=== PATIENT | female | born 1955 | race Caucasian/White ===

== ENCOUNTER 2023-08-22 21:41 | Emergency (ER) | payer OTHER, SELFPAY ==
[2023-08-22 21:50] VITALS: BP 98/52
--- NOTE | 2023-08-23 02:26 | ED.MUSCINJ ---
HPI-Injury
<XIAO Whelan - Last Filed: 08/23/23 02:51>
General
Chief Complaint: Head Injury
Source: patient
Exam Limitations: none
Time Seen by Provider: 08/23/23 02:04
Travel History
Have you had any contact with someone who has COVID-19?: No
Do you have any symptoms of coronavirus? Fever > 100 degrees, chills, cough, shortness of breath, sore throat, loss of taste or smell, muscle aches, or headache?: No
History of Present Illness-Injury
Initial Injury comments:
This is a 67 YO F with a PMH of HTN, GERD, Acute hyponatremia, AA, and MINDY that presents here today with complaints of right-sided head pain, mid-sternal pain, and pain underneath the right breast x 5 hours. Pt reports she was sitting in a wheeling
computer chair, then fell back and hit her head on a piece of furniture and fell. She admits to mild CP and SOB upon inspiration. She admits to drinking before the event occurred. She did not take Motrin or Tylenol before getting here. Denies blood
thinners. Denies loss of consciousness, headache, N, V. Denies blurry vision.
Past History
<XIAO Whelan - Last Filed: 08/23/23 02:51>
Past History
ED Past Medical History: GERD, HTN and Psychiatric
Social History
Tobacco: Smoker
Alcohol: Chronic alcoholic
Drug: None
Personal:
Living: with family
Review of Systems
<XIAO Whelan - Last Filed: 08/23/23 02:51>
Review of Systems
Constitutional: Reports no symptoms
EENT: Reports no symptoms
Respiratory: Reports trouble breathing
Cardiac: Reports other (Chest discomfort/soreness)
ABD/GI: Reports no symptoms
: Reports no symptoms
Neurological: Reports no symptoms
Phy Exam
<ST TipPR - Last Filed: 08/23/23 02:51>
Physical Exam
Physical Exam:
S1 and S2, Breath sounds are equal B/L
Small bump with tenderness behind right side of the head
Tenderness under right breast, mid-sternal tenderness
(-)Cervical pain, (-)Back pain
General Physical Exam
General Presentation: well appearing
General age: appears stated age
General Habitus: normal
General Mental: alert
Cardiovascular Exam
Cardiovascular Exam: regular rate/rhythm
Pulmonary Exam
Pulmonary Exam: lungs clear and other (Chest discomfort)
Neurological Exam
Neurological Exam: alert, oriented x3 and speech normal
Musculoskeletal Exam
Musculoskeletal Exam: other (+Tenderness under right breast, +Tenderness in mid-sternal area)
Injury Course
<Tawnya Grant [facility] [[email or web address]] - Last Filed: 08/23/23 02:51>
Orders/Labs/Results
Orders:
Orders
08/22/23 21:[address] [CT Head W/o Iv Contrast] Urgent
Comment:
Reason For Exam: FALL
CR Ribs-right 3 Vw W/pa Chest* Urgent
Comment:
Reason For Exam: FALL
<Kraig Choi DO - Last Filed: 08/23/23 03:39>
Orders/Labs/Results
Orders:
Orders
08/22/23 21:[address] [CT Head W/o Iv Contrast] Urgent
Comment:
Reason For Exam: FALL
CR Ribs-right 3 Vw W/pa Chest* Urgent
Comment:
Reason For Exam: FALL
<Tawnya Grant [facility] [[email or web address]] - Last Filed: 08/23/23 02:51>
MDM/Problems Addressed
Differential Diagnosis Includes:
Rib fracture, concussion
MDM/Problems Addressed:
Head pain x 5 hours
<XIAO Whelan - Last Filed: 08/23/23 02:51>
*Critical Care Note
Total Time (30-74mins, 75-104mins- exclusive of procedures): Not Applicable
<XIAO Whelan - Last Filed: 08/23/23 02:51>
Update Note
Update Note:
Christy (Pt's daughter): [phone] to call when patient is ready
CT head
IMPRESSION:
No acute intracranial findings.
Senescent changes. Vascular calcifications.
<Kraig Choi DO - Last Filed: 08/23/23 03:39>
Update Note
Update Note:
CT head
IMPRESSION:
No acute intracranial findings.
Senescent changes. Vascular calcifications.
ED Attending Note
<XIAO Whelan - Last Filed: 08/23/23 02:51>
-
Portions of this chart may have been created with voice recognition software.� Occasional wrong word or��sound alike� substitutions may have occurred due to the inherent limitations of voice recognition software.
<Kraig Choi DO - Last Filed: 08/23/23 03:39>
ED Attending Note
Patient seen and examined by attending physician: Yes
I performed the substantive portion of visit, reviewed & personally made and approve the management plan that is documented in note by myself or ROBERT.: Yes
ED Attending Note:
Pleasant 67-year-old female who presents with closed head injury and rib pain. Patient states that she has had pain underneath the right breast since she fell. Patient admits to consuming alcohol and was sitting in a rolling chair. It slid out
from underneath her and she fell back and hit her head and chest. Denies loss of consciousness. Patient was seen in conjunction with the PA student. I have reviewed and agree with the history and treatment plan presented. On my independent
physical exam, patient is awake, alert, and oriented x3 resting comfortably on the bed. Lungs are clear to auscultation bilaterally without wheezes rales or rhonchi present. Abdomen is soft and minimally tender in the epigastrium nondistended.
Sternum is tender to palpation.
CT of the head is negative. No obvious rib fractures on chest x-ray. Patient to be discharged home
Discharge Plan
Departure
Patient Disposition: Home (Routine Discharge)
Date of Disposition: 08/23/23
Time of Disposition: 03:38
Patient with high blood pressure during this ER visit?: No
Condition: Good
Discharge Problem:
Head injury, Chest wall pain
Instructions: Minor Head Injury (DC), Contusion (DC), Muscle and Bone Pain (DC)
Prescriptions:
No Action
fluticasone propionate 1 SPRAY spray,suspension
1 spray intranasal DAILYPRN PRN (Reason: congestion)
omeprazole 20 MG tablet,delayed release (DR/EC)
20 mg PO DAILY
metoprolol succinate 25 MG tablet extended release 24 hr
25 mg PO DAILY Qty: 30 0RF
nicotine 14 MG patch 24 hour
14 mg transdermal DAILY 0RF
folic acid 1 MG tablet
1 mg PO DAILY 0RF
aripiprazole 2 MG tablet
2 mg PO DAILY Qty: 30 0RF
lisinopril 5 MG tablet
5 mg PO DAILY Qty: 30 0RF
thiamine HCl (vitamin B1) 100 MG tablet
100 mg PO DAILY Qty: 30 0RF
Referrals:
NONE,* [Family Provider] -
[facility] [Outside]
[facility] [Outside]
Activity Restrictions/Additional Instructions:
It was a pleasure meeting you and taking part in your care. We hope for your continued healing and wellness.
Please read discharge instructions in their entirety. However, they are for general education and may not describe your exact diagnosis at discharge. Information on your ER visit and medical conditions were discussed with you along with appropriate
follow up information...
If indicated, please take your medications as instructed and indicated on discharge paperwork.
Please schedule a follow up appointment as directed. Call to schedule an appointment
Please return to the emergency department with ANY change in, persisting, or worsening of symptoms. If any of your symptoms do not improve, or persist, or become more severe within 6-12 hours, please return to the emergency department for further
care.
Please return to the emergency department if you develop a headache, neck pain/stiffness, fever greater than 100.4F, chest pain, shortness of breath, persistent nausea, vomiting, slurred speech, difficulty walking, numbness/tingling, weakness, signs
of infection or any other symptoms that are worrisome to you.
If you have any questions or concerns please do not hesitate to call the Hospital at or E-mail me directly at [email or web address]
Interventions
Interventions:
*Risk Screen - Suicide Last Done: 08/22/23 21:50
*Neglect/Abuse Screening Last Done: 08/22/23 21:50
ED- Fall Risk Assessment Last Done: 08/23/23 02:09
ED-Musculoskeletal Assessment Last Done: 08/23/23 02:09
ED- Neurological Assessment Last Done: 08/23/23 02:09
ED-Skin Assessment Last Done: 08/23/23 02:09
Discharge Date and Time
Print Language: CROATIAN
[2023-08-23 06:56] VITALS: BP 157/87
== END 2023-08-23 06:57 | disposition home or self-care (01) ==
LOC: EMR 21:41
PROVIDERS: EMERGENCY PHYSICIAN Student in an Organized Health Care Education/Training Program
DX: S09.90XA Unspecified injury of head, initial encounter (principal); R07.89 Other chest pain; R51.9 Headache, unspecified; R06.02 Shortness of breath; W07.XXXA Fall from chair, initial encounter; F10.20 Alcohol dependence, uncomplicated; I10 Essential (primary) hypertension; K21.9 Gastro-esophageal reflux disease without esophagitis; F17.200 Nicotine dependence, unspecified, uncomplicated
CPT/HCPCS: 99284; 70450; 71101

== ENCOUNTER 2023-10-06 01:49 | Inpatient (IN) | payer OTHER, SELFPAY ==
[2023-10-05 20:09] VITALS: BP 110/77
[2023-10-05 20:30] LABS: % Basophils 0.3 % (0-2); % Eosinophils 0.8 % (0-6); % Immature Granulocytes 0.5 % (0-0.5); % Lymphocytes 30.1 % (20.5-51.1); % Neutrophils 61.3 % (42.2-75.2); Absolute Eosinophils 0.1 10^3/uL (0-0.7); Absolute Immature Granulocytes 0.1 10^3/uL (0-0.05); Absolute Lymphocytes 3.4 10^3/uL (1.2-3.4); Absolute Monocytes 0.8 10^3/uL (0.1-0.6); Hematocrit 40.1 % (37.0-47.0); Hemoglobin 14.6 g/dL (12.0-16.0); Mean Corp Hgb Conc. 36.4 g/dL (33.0-37.0); Mean Corpuscular Hgb 33.1 pg (27.0-31.0); Mean Corpuscular Volume 90.9 fL (81.0-99.0); Mean Platelet Volume 9.6 fL (7.4-10.4); Nucleated Red Blood Cells % 0 %; Platelet Count 412 10^3/uL (130-400); Red Blood Cell Count 4.41 10^6/uL (4.20-5.40); Red Cell Dist. Width 13.2 % (11.5-14.5); White Blood Cell Count 11.4 10^3/uL (4.8-10.8)
[2023-10-05 20:54] LABS: AST (SGOT) 35 U/L (14-36); Albumin 4.6 g/dl (3.5-5.0); Alkaline Phosphatase 158 U/L (38-126); Blood Urea Nitrogen 10 mg/dl (7-17); Calcium 9.4 mg/dl (8.4-10.2); Carbon Dioxide 28 mmol/L (22-30); Chloride 85 mmol/L (98-107); Glucose 125 mg/dl (70-99); Lipase 63 U/L (23-300); Potassium 3.7 mmol/L (3.5-5.1); Sodium 122 mmol/L (135-145); Total Bilirubin 0.9 mg/dl (0.2-1.3); Total Protein 7.3 g/dl (6.3-8.2); eGFR > 60.00
[2023-10-05 21:06] LABS: ALT (SGPT) < 30 U/L (0-35)
--- NOTE | 2023-10-05 21:20 | ED.GENMED ---
History of Present Illness
General
Chief Complaint: Abdominal Symptoms
Source: patient
Exam Limitations: none
Time Seen by Provider: 10/05/23 20:56
History of Present Illness
History of Present Illness:
This is a 67 year old female that comes in with c/o abd pain vomiting and diarrhea. States that she started 3 days ago with abd pain, vomiting and diarrhea. State that the vomiting and diarrhea started first. States that she is weak and dizzy and
has not been able to eat. States that the pain is in the middle of her abd. States that she has balance issues. States that she has had chills and sweats at night, chest tightness and dizziness. Denies any SOB, headache, urinary burning.
Past History
Past History
ED Past Medical History: GERD, HTN, Psychiatric (Anxiety, Depression) and Other (DVT)
ED Past Surgical History: Appendectomy and Gynecological (tubal ligation)
Social History
Tobacco: Smoker
Alcohol: Chronic alcoholic (wine 4-5 glasses)
Drug: None
Personal:
Living: alone
Review of Systems
Review of Systems
All Other Systems: ROS reviewed and negative except as documented in HPI and ROS
Constitutional: Reports night sweats and chills; Denies fever
EENT: Reports no symptoms
Respiratory: Denies cough or trouble breathing
Cardiac: Reports chest pain (tightness)
ABD/GI: Reports abdominal pain, nausea, vomiting and diarrhea
: Reports no symptoms; Denies dysuria, frequency or urgency
Musculoskeletal: Reports no symptoms
Skin: Reports no symptoms
Neurological: Reports dizzy; Denies headache
Psychiatric: Reports no symptoms
Phy Exam
General Physical Exam
General Presentation: no apparent distress
General age: appears stated age
General Skin: warm and dry
General Habitus: normal
General Mental: alert
General Hydration: dry mucous membranes
ENT Exam
ENT Exam: TM's normal, pharynx normal and neck supple
Eye Exam
Eye Exam: EOMI
Cardiovascular Exam
Cardiovascular Exam: regular rate/rhythm, no edema, no murmur and normal peripheral pulses
Pulmonary Exam
Pulmonary Exam: lungs clear, no respiratory distress, no rales, chest non tender, no crackles, no rhonchi, no wheezing and no cough
Gastrointestinal Exam
Gastrointestinal Exam: normal bowel sounds, soft, no organomegaly, no pulsatile mass, non distended and tender (Generalized tenderness with palpation)
Musculoskeletal Exam
Musculoskeletal Exam: full ROM and no edema
Skin Exam
Skin Exam: normal color, warm/dry, no rash and no petechia
Psychiatric Exam
Psychiatric Exam: normal mood/affect
Course
Orders/Labs/Results
Orders:
Orders
10/05/23 20:22
Complete Blood Count/With Diff Urgent
Comprehensive Metabolic Panel Urgent
Lipase Urgent
10/05/23 21:19
CT Abd/pel W Iv And Oral Contr Urgent
Comment:
Reason For Exam: Generalized abd pain
0.9% Sodium Chloride 1000 ml [Nss] 1,000 ml IV BOLUS
Iohexol [Omnipaque] See Protocol PO NOW STA
10/05/23 21:20
Ondansetron Injectable [Zofran] 4 mg IV NOW STA
10/05/23 21:22
Electrocardiogram (*1) Urgent
Reason for Study: Abdominal Pain
EKG- Treatment ONCE
10/05/23 21:47
Troponin I Urgent
10/05/23 23:00
UA Reflex to Culture [Urinalysis Reflex To Culture] Urgent
Date Specimen was Collected: 10/05/23
Time Specimen was Collected: 20:13
Abnormal Lab Results
10/05/23
20:22
WBC 11.4 H 10^3/uL
(4.8-10.8)
MCH 33.1 H pg
(27.0-31.0)
Plt Count 412 H 10^3/uL
(130-400)
Abs Immat Gran (auto) 0.1 H 10^3/uL
(0-0.05)
Absolute Neuts (auto) 7.0 H 10^3/uL
(1.4-6.5)
Absolute Monos (auto) 0.8 H 10^3/uL
(0.1-0.6)
Sodium 122 L mmol/L
(135-145)
Chloride 85 L mmol/L
(98-107)
Glucose 125 H mg/dl
(70-99)
Alkaline Phosphatase 158 H U/L
(38-126)
10/05/23 20:22
10/05/23 20:22
WBC very slightly elevated. Chloride low. Glucose nonfasting. Hyponatremia, Alk phos elevation. Lipae normal at 63
Vital Signs
Initial and Last Documented VS:
Initial Vital Signs
Temp Pulse Resp BP Pulse Ox
98.2 F 111 20 110/77 97
10/05/23 20:09 10/05/23 20:09 10/05/23 20:09 10/05/23 20:09 10/05/23 20:09
Last Documented Vital Signs
Temp Pulse Resp BP Pulse Ox
98.2 F 111 20 110/77 97
10/05/23 20:09 10/05/23 20:09 10/05/23 20:09 10/05/23 20:09 10/05/23 20:09
MDM/Problems Addressed
Differential Diagnosis Includes:
Alcohol abuse. Gastritis, Hyponatremia
MDM/Problems Addressed:
This is a 67 year old female that comes in with c/o vomiting, diarrhea and abd pain. states that this started 3 days ago. State that she is dizzy and weak.
Will get labs. CT abd, give IV fluids and explained to patient that she will be admitted as her Sodium is very low.
Back into see patient. Explained that the CT shows that she has enteritis. This will get better on its own. However, with the Hyponatremia, patient will be admitted. Hospitalist notified
Chronic conditions affecting care:
Alcohol use
Acute Exacerbation and/or Progression of Chronic Illness:
Alcohol use
*Radiology
Radiology exam reviewed: radiology read reviewed (CT- circumferential colonic wall thickening and hyperenhancement of the loops of small bowel with scattered air-fluid level, compatible with Enterocolitis. No bowel obstruction. Normal gallbladder
Incidentals: No obstructive uropathy. hepatic hypodensities, too small to characterize.) and all reviewed NAD by ED Provider (CT cont- No abdominal aortic aneurysm. Age-indeterminate compression deformity of L2 vertebral body, approximately 20%
height loss anteriorly, new since prior dated 07/16/2018. No acute abnormality within the visualized lungs. No acute abnormality within the visualized soft tissues. )
*Pulse Oximetry
Patient hypoxic: no
*Bottom Sander Interpretation
Rate: Bottom Sander- N/A
*Critical Care Note
Total Time (30-74mins, 75-104mins- exclusive of procedures): Not Applicable
ED Attending Note
-
Portions of this chart may have been created with voice recognition software.� Occasional wrong word or��sound alike� substitutions may have occurred due to the inherent limitations of voice recognition software.
Discharge Plan
Departure
Patient Disposition: Admit
Date of Disposition: 10/06/23
Time of Disposition: 00:16
Admit to: Med/Surg
Presentation/result/management discussed w/ accepting MD/DO: Hospitalist
Patient with high blood pressure during this ER visit?: No
Condition: Good
Covid-19: Not Applicable
Discharge Problem:
Abdominal pain, Acute hyponatremia
Prescriptions:
No Action
fluticasone propionate 1 SPRAY spray,suspension
1 spray intranasal DAILYPRN PRN (Reason: congestion)
omeprazole 20 MG tablet,delayed release (DR/EC)
20 mg PO DAILY
metoprolol succinate 25 MG tablet extended release 24 hr
25 mg PO DAILY Qty: 30 0RF
nicotine 14 MG patch 24 hour
14 mg transdermal DAILY 0RF
folic acid 1 MG tablet
1 mg PO DAILY 0RF
aripiprazole 2 MG tablet
2 mg PO DAILY Qty: 30 0RF
lisinopril 5 MG tablet
5 mg PO DAILY Qty: 30 0RF
thiamine HCl (vitamin B1) 100 MG tablet
100 mg PO DAILY Qty: 30 0RF
Referrals:
NONE,* [Family Provider] -
Interventions
Interventions:
*General Assessment Last Done: 10/05/23 20:09
ED- Fall Risk Assessment Last Done: 10/05/23 21:11
JR-[id number]-[id number] Assessment Last Done: 10/05/23 21:20
Discharge Date and Time
Print Language: ARABIC
[2023-10-05] MEDS: NSS 1000 IV (21:27)
[2023-10-05] MEDS: OMNIPAQUE 50 ML PO (21:27)
[2023-10-05] MEDS: ZOFRAN 4 MG IV (21:27)
[2023-10-05 21:33] VITALS: BP 132/72
[2023-10-05 22:00] VITALS: BP 156/94
[2023-10-05 22:17] LABS: Troponin I 0.024 ng/ml
[2023-10-06 01:07] VITALS: BP 108/55
--- NOTE | 2023-10-06 01:07 | HPS.HSE ---
Family Physician
-
Family Physician: * NONE
Chief Complaint
-
N/V/D, Abd Pain
History of Present Illness
Patient is a 67y F with PMH significant for hypertension, anxiety / depression and alcohol use disorder who presents to ED complaining of abdominal pain with N/V/D x 3 days. Patient states that she has had N/V and loose stools x 3 days. No
known sick contacts. No new / suspicious food intake. Patient does note subjective fevers / chills / sweats in addition to her GI complaints.
Patient states that her diarrhea seems to be gradually improving; however, she continues to have nausea and 'dry heaves' and is having difficulty tolerating PO intake.
Patient admits to regular alcohol use amounting to approximately 4-5 glasses of wine daily. Her last alcohol was about 2 days ago due to her current symptoms.
She recently relocated to this area from [place] and does not have a local physician.
She knows names of her medication - but not doses.
Medical History
Past Medical History
Past Medical History: Reports Other
Additional Past Medical History:
Hypertension
Anxiety / Depression
Dyslipidemia
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
Past Surgical History: Reports Other
Additional Past Surgical History:
Appendectomy
Tubal Ligation
Social History
Tobacco: Smoker (Current every day smoker. > 40 pack years total use.)
Alcohol: Daily (4-5 glasses of wine daily. Last drink 2 days ago.)
Family History
Family History: Not pertinent
Allergies / Home Medications
Allergies reflects when Allergies were last updated in [employer].
Home Medications with original date entered in [employer]
Allergy/Medication List:
Patient does not know doses of medications. Her named list is as follows:
Trazodone nightly
Sertraline daily
Atorvastatin nightly
Metoprolol once daily
Omeprazole daily
Formal med rec will need to be completed in the AM.
Review of Systems
-
History Source: Patient
A 12 point ROS was completed and negative except as noted: Yes
Constitutional: Reports Fever, Fatigue, Night Sweats and Chills
EENT: Denies Sore Throat
Respiratory: Denies Cough or Trouble Breathing
Cardiac: Denies Chest Pain or Palpitations
Abdomen/GI: Reports Abdominal Pain, Nausea, Vomiting, Diarrhea and Anorexia; Denies Bloody Stools or Black Stools
: Denies Dysuria, Frequency or Flank Pain
Musculoskeletal: Denies Joint Pain or Edema
Neurological: Denies Dizzy or Headache
Psych: Denies Depression or Anxiety
Physical Exam
Vital Signs
Vital Signs
Temp Pulse Resp BP Pulse Ox
98.2 F 111 20 110/77 97
10/05/23 20:09 10/05/23 20:09 10/05/23 20:09 10/05/23 20:09 10/05/23 20:09
Physical Exam
General: Other (67y F in no acute distress.)
HEENT: PERRLA and Other (Dry MM.)
Respiratory: Clear; No Wheezes, Rales or Rhonchi
Cardiac: S1/S2 and Regular Rhythm; No Murmur
GI: Soft, Non Distended, Normal Bowel Sounds and Other (Mild tenderness in epigastric and periumbilical areas.)
Musculoskeletal: No Clubbing, No Cyanosis and No Edema
Neuro: AO x 3
Laboratory Results
-
10/05/23 20:22
10/05/23 20:22
Laboratory Results
Total Bilirubin 0.9 mg/dl (0.2-1.3) 10/05/23 20:22
AST 35 U/L (14-36) 10/05/23 20:22
ALT < 30 U/L (0-35) 10/05/23 20:22
Alkaline Phosphatase 158 U/L (38-126) H 10/05/23 20:22
Troponin I 0.024 ng/ml 10/05/23 21:47
Lipase 63 U/L (23-300) 10/05/23 20:22
Impression/Plan
-
A/P: Patient is a 67y F with PMH significant for hypertension and alcohol use disorder who presents to ED complaining of 3 days of N/V/D and abdominal pain.
Enterocolitis
- Admit for further evaluation and treatment.
- Likely viral process - check stools cultures to rule out Salmonella, etc given recent prevalence.
- Supportive care including IVFs, antiemetics, etc.
Hyponatremia
- Acuity is unclear as patient had similar findings previously.
- Suspect component of acute / hypovolemic hyponatremia due to GI losses.
- Follow for improvement with IVF replacement overnight.
- Check urine studies.
- Likely degree of chronic hyponatremia due to alcohol use disorder / poor solute intake.
Alcohol Use Disorder
- Typically has 4-5+ drinks daily.
- Last drink was 2 days ago - in window for withdrawal symptoms.
- Supportive care including thiamine / folate replacement, etc.
- Monitor for symptoms of withdrawal and treat with BZDs as needed.
- Encourage sobriety efforts.
Benign Hypertension
- Resume usual medications / metoprolol once dose / frequency can be confirmed with pharmacy in the AM.
Anxiety / Depression
- Continue trazodone nightly.
- Resume usual sertraline dose once this can be confirmed (though consider holding if hyponatremia worsens / dose not improve).
DVT Prophylaxis: SCDs
Code Status: Full
[2023-10-06] MEDS: DESYREL 100 MG PO ×2 (01:29→21:47)
[2023-10-06 02:03] LABS: Alcohol None Detected
[2023-10-06 02:47] VITALS: BP 123/74; BMI 15.3
[2023-10-06] MEDS: LR 1000 IV ×3 (03:04→21:46)
[2023-10-06 06:31] LABS: Hematocrit 32.6 % (37.0-47.0); Hemoglobin 11.9 g/dL (12.0-16.0); Mean Corp Hgb Conc. 36.5 g/dL (33.0-37.0); Mean Corpuscular Hgb 34.1 pg (27.0-31.0); Mean Corpuscular Volume 93.4 fL (81.0-99.0); Mean Platelet Volume 9.8 fL (7.4-10.4); Platelet Count 250 10^3/uL (130-400); Red Blood Cell Count 3.49 10^6/uL (4.20-5.40); Red Cell Dist. Width 13.2 % (11.5-14.5); White Blood Cell Count 9.9 10^3/uL (4.8-10.8)
[2023-10-06 06:48] LABS: Urine Albumin Negative (Neg - Trace); Urine Bilirubin Negative (Negative); Urine Character Clear (Clear); Urine Color Yellow; Urine Glucose Negative (Negative); Urine Ketone Negative (Negative); Urine Leukocyte Negative (Negative); Urine Nitrite Negative (Negative); Urine Occult Blood Negative (Negative); Urine Specific Gravity 1.005 (<1.030); Urine Urobilinogen Negative (Neg - 1+)
[2023-10-06 06:49] LABS: Osmolality Urine 109 mOsm/kg (300-900)
[2023-10-06 06:52] LABS: Blood Urea Nitrogen 9 mg/dl (7-17); Calcium 8.6 mg/dl (8.4-10.2); Carbon Dioxide 31 mmol/L (22-30); Chloride 92 mmol/L (98-107); Estimated Creatinine Clearance 49 ml/min; Glucose 87 mg/dl (70-99); Magnesium 1.4 mg/dl (1.6-2.3); Phosphorus 3.5 mg/dl (2.5-4.5); Potassium 3.5 mmol/L (3.5-5.1); Sodium 127 mmol/L (135-145); eGFR > 60.00
[2023-10-06 07:01] LABS: Urine Sodium 14 mmol/L (30-90)
[2023-10-06 07:41] LABS: Hepatitis C Antibody Negative (Negative)
[2023-10-06 07:50] VITALS: BMI 15.2
[2023-10-06 07:55] VITALS: BP 117/65
[2023-10-06] MEDS: FOLVITE 1 MG PO (08:42)
[2023-10-06] MEDS: THIAMINE INJECTION 200 MG IV ×2 (08:43→21:47)
[2023-10-06] MEDS: PROTONIX IV 40 MG IV (08:43)
[2023-10-06] MEDS: NSS (PRESERVATIVE FREE) 10 ML IV (08:43)
--- NOTE | 2023-10-06 10:42 | CM ---
Reviewed the chart notes and received CM consult for substance abuse counseling. CM spoke with the patient at the bedside. Patient open to [facility] field support representative reaching out to her. Call placed to [facility], field support representative Geovanny will see patient later
today.
The patient resides alone in a one story home with two steps to enter. The patient reports no DME/VN/SNF in the past. The patient confirmed her pharmacy of choice is the [facility]. CM continues to be available to
patient/family and is monitoring medical plan for needs at discharge.
Plan: Discharge to home when medically stable.
[2023-10-06 11:09] LABS: Amphetamines Negative (Negative); Barbiturates Negative (Negative); Benzodiazepines Negative (Negative); Buprenorphine Negative (Negative); Cocaine Negative (Negative); Marijuana Positive (Negative); Methadone Negative (Negative); Methamphetamines Negative (Negative); Opiates Negative (Negative); Phencyclidine Negative (Negative); Tricyclic Antidepressants Negative (Negative)
[2023-10-06 11:13] VITALS: BP 121/66
--- NOTE | 2023-10-06 13:26 | W.PN.HOSP.TC ---
Addendum entered and electronically signed by Luis Antonio Billings MD 10/06/23 17:56:
I saw and evaluated the patient. I reviewed the resident�s note and agree with findings and plan as documented in the resident�s note.
Repeat BMP to follow on sodium this evening. Continue IV fluid. llow sodium in the urine suggest prerenal process which correlates with her GI symptoms.
Original Note:
Today's Communication/Plan
-
We will continue supportive care including lactated Ringer's, antiemetics. Abdominal ultrasound ordered to assess liver, gallbladder, pancreas. Check albumin and prealbumin for nutritional status.
Assessment / Plan
Assessment / Plan
- Abdominal Pain/Nausea: Monitoring
Possibly viral process - check stools cultures to rule out Salmonella, etc given recent prevalence.
Supportive care including IVFs, antiemetics, etc.
Abdominal ultrasound ordered to assess liver, pancreas, and gallbladder
- Hypovolemic Hyponatremia:
Suspect component of acute / hypovolemic hyponatremia due to GI losses.
Following for improvement with IVF replacement with lactated ringer's
UA ordered - urine osmolality was low at 109 and urine sodium was low at 14
Possibly due to alcohol use disorder / poor solute intake.
- Alcohol Use Disorder:
Typically has 4-5+ drinks daily.
Last drink was 2 days ago which is within the window for withdrawal symptoms.
Supportive care including thiamine/folate replacement.
Monitoring for symptoms of withdrawal and will treat with benzodiazepines as needed.
Reduction of alcohol intake / sobriety.
Consider outpatient follow-up with primary care provider and gastroenterology
- Benign Hypertension:
Home medications restarted.
Metoprolol given.
-Anxiety/depression:
Continue trazodone nightly
Resume normal sertraline dose if hyponatremia is resolved
- Body mass index of 19.9 or less:
Dietary consult ordered
Serum albumin and prealbumin to assess nutritional status
Consider nutritional support, possibly including oral nutritional supplement.
DVT prophylaxis: Sequential compression devices
Anticipated Discharge: 24 - 48 hours
Subjective/Interval History
-
Date of Service: October 06, 2023
Met with patient at the bedside. She is in a calm and pleasant demeanor during discussion. She states that her nausea and abdominal pain have slightly improved.
Objective Data
-
Labs:
Laboratory Results
10/06/23
06:20
WBC 9.9
Hgb 11.9 L
Hct 32.6 L
Plt Count 250 D
Sodium 127 L
Potassium 3.5
Chloride 92 L
Carbon Dioxide 31 H
BUN 9
Creatinine 0.8
Glucose 87
Calcium 8.6
Vital Signs:
Vital Signs
Temp Pulse Resp BP Pulse Ox
98.0 F 80 18 121/66 98
10/06/23 11:13 10/06/23 11:13 10/06/23 11:13 10/06/23 11:13 10/06/23 13:11
Review of Systems
-
History Source: Patient
Constitutional: Reports No Symptoms
EENT: Reports No Symptoms Reported
Respiratory: Reports No Symptoms
Cardiac: Reports No Symptoms
Abdomen/GI: Reports Abdominal Pain, Nausea and Pain
Breast: Reports No Symptoms
Genitourinary: Reports No Symptoms
Musculoskeletal: Reports No Symptoms
Skin: Reports No Symptoms
Neuro: Reports No Symptoms
Endocrine: Reports No Symptoms
Hematologic / Lymphatic: Reports No Symptoms
Allergy / Immunology: Reports No Symptoms
Physical Exam
-
General: Well Developed and Well Nourished
HEENT: Normocephalic, Atraumatic and Moist Mucous Membranes
Respiratory: Clear to Auscultation
Cardiac: Regular Rhythm and S1/S2
Breast: Deferred by me
GI: Soft and Nondistended
Rectal: Deferred by Provider
Genito-urinary: Deferred by me
Musculoskeletal: No Clubbing, No Cyanosis and No Edema
Skin: Warm and Dry
Neuro: Nonfocal/Grossly Intact
Psych: Calm
[2023-10-06 15:07] VITALS: BP 109/57
[2023-10-06 15:13] VITALS: BMI 15.2
[2023-10-06] MEDS: MAGONATE 86 MG PO (16:46)
[2023-10-06 16:48] LABS: AST (SGOT) 42 U/L (14-36); Albumin 3.7 g/dl (3.5-5.0); Alkaline Phosphatase 134 U/L (38-126); Direct Bilirubin 0.3 mg/dl (0.0-0.4); Total Bilirubin 0.8 mg/dl (0.2-1.3); Total Protein 6.2 g/dl (6.3-8.2)
[2023-10-06 17:30] LABS: ALT (SGPT) < 30 U/L (0-35)
[2023-10-06 19:13] LABS: Blood Urea Nitrogen 7 mg/dl (7-17); Calcium 8.3 mg/dl (8.4-10.2); Carbon Dioxide 29 mmol/L (22-30); Chloride 93 mmol/L (98-107); Estimated Creatinine Clearance 65 ml/min; Glucose 130 mg/dl (70-99); Potassium 3.2 mmol/L (3.5-5.1); Sodium 127 mmol/L (135-145); eGFR > 60.00
[2023-10-06 23:50] VITALS: BP 90/52
[2023-10-07 01:36] VITALS: BP 90/52
[2023-10-07 04:06] VITALS: BP 128/73
[2023-10-07 07:00] VITALS: BP 131/70
[2023-10-07 07:40] LABS: Hematocrit 27.6 % (37.0-47.0); Hemoglobin 10.2 g/dL (12.0-16.0); Mean Corpuscular Hgb 34.8 pg (27.0-31.0); Mean Corpuscular Volume 94.2 fL (81.0-99.0); Mean Platelet Volume 10.2 fL (7.4-10.4); Platelet Count 212 10^3/uL (130-400); Red Blood Cell Count 2.93 10^6/uL (4.20-5.40); Red Cell Dist. Width 13.2 % (11.5-14.5); White Blood Cell Count 5.8 10^3/uL (4.8-10.8)
[2023-10-07 08:02] LABS: ALT (SGPT) 18 U/L (0-35); AST (SGOT) 39 U/L (14-36); Albumin 2.4 g/dl (3.5-5.0); Alkaline Phosphatase 88 U/L (38-126); Blood Urea Nitrogen 6 mg/dl (7-17); Carbon Dioxide 27 mmol/L (22-30); Chloride 101 mmol/L (98-107); Estimated Creatinine Clearance 65 ml/min; Glucose 78 mg/dl (70-99); Potassium 3.1 mmol/L (3.5-5.1); Sodium 131 mmol/L (135-145); Total Bilirubin 0.6 mg/dl (0.2-1.3); Total Protein 4.6 g/dl (6.3-8.2); eGFR > 60.00
[2023-10-07 08:05] LABS: Prealbumin (Transthyretin) 14.2 mg/dl (17.6-36.0)
[2023-10-07] MEDS: PROTONIX IV 40 MG IV (09:05)
[2023-10-07] MEDS: FOLVITE 1 MG PO (09:05)
[2023-10-07] MEDS: THIAMINE INJECTION 200 MG IV (09:05)
[2023-10-07] MEDS: NSS (PRESERVATIVE FREE) 10 ML IV (09:06)
[2023-10-07] MEDS: FLUSH (NSS) 2 FLUSH IV ×2 (09:08→14:53)
[2023-10-07] MEDS: LR IV (09:43)
--- NOTE | 2023-10-07 09:51 | W.PN.HOSP.TC ---
Documented by User: Maria Esther Layton MD, Resident 10/07/23 11:21
Today's Communication/Plan
-
Will continue IVF resuscitation. Will continue to give potassium to correct for hypokalemia. Will replete magnesium if continues to have hypomagnesemia. Will continue to follow the recommendations of dietary and encouraged the patient to increase
her fluid intake if tolerated.
Assessment / Plan
Assessment / Plan
- Abdominal Pain/Nausea: Monitoring
Possibly viral process - check stools cultures to rule out Salmonella, etc given recent prevalence.
Supportive care including IVFs, antiemetics, etc.
Dietary consult concluded that the patient met criteria for chronic severe protein calorie malnutrition. They advised that the patient do the best to consume greater than 50% of each meal offered. They also recommended that the diet remain as a
regular diet to maximize oral intake.
Stool culture pending from 10/05 for Salmonella/Shigella, Campylobacter, and Shiga toxin.
Abdominal CT conducted on 10/04 showed air-fluid levels in nondilated small and large bowel loops, findings that may be seen in association with ileus or enteritis. There was no bowel obstruction. No signs of abscess formation no focal
inflammatory reaction of the bowel was identified. Hepatic fatty infiltration seen.
- Hypovolemic Hyponatremia: Improving with Repletion
Suspect component of acute / hypovolemic hyponatremia due to GI losses.
Following for improvement with IVF replacement with lactated ringer's
Current sodium is 131 -continue IVF repletion.
UA ordered - urine osmolality was low at 109 and urine sodium was low at 14 on 10/06. Suggests prerenal process which correlates with her GI symptoms.
Possibly due to alcohol use disorder / poor solute intake.
- Hypokalemia: Monitoring + tx
Potassium was 3.2 on 10/05 and is currently 3.1 on 10/06.
Patient is currently on lactated Ringer's. Continue IVF resuscitation. Added potassium chloride p.o.
- Hypomagnesemia: Monitoring + tx
Magnesium was 1.4 on 10/05. Remains at 1.4 on 10/06.
Continue to replete since current labs continue to show hypomagnesemia.
- Alcohol Use Disorder: Stable
Typically has 4-5+ drinks daily.
Last drink was 2 days ago which is within the window for withdrawal symptoms.
Supportive care including thiamine/folate replacement.
Monitoring for symptoms of withdrawal and will treat with benzodiazepines as needed.
Reduction of alcohol intake / sobriety.
Consider outpatient follow-up with primary care provider and gastroenterology
- Benign Hypertension: Stable
Home medications restarted.
Metoprolol given.
- Anxiety/depression: Stable
Continue trazodone nightly
Resume normal sertraline dose if hyponatremia is resolved
- Body mass index of 19.9 or less: Monitoring + consult
Dietary consult ordered
Serum albumin and prealbumin to assess nutritional status
Consider nutritional support, possibly including oral nutritional supplement.
DVT prophylaxis: Sequential compression devices
Anticipated Discharge: Within 24 hours
Subjective/Interval History
-
Date of Service: October 07, 2023
Met with patient at the bedside. She states that she is feeling better than she did yesterday. Yesterday she rated abdominal her pain at a 7 out of 10. Today she rates her pain around a 5 out of 10. Her appetite is slightly improved and her
nausea has improved as well. She states that she feels chilly and has been using extra blankets.
Objective Data
-
Labs:
Laboratory Results
10/07/23 10/07/23
06:58 14:00
WBC 5.8 Pending
Hgb 10.2 L Pending
Hct 27.6 L Pending
Plt Count 212 Pending
Sodium 131 L
Potassium 3.1 L
Chloride 101
Carbon Dioxide 27
BUN 6 L
Creatinine 0.6
Glucose 78
Calcium 8.0 L
Total Bilirubin 0.6
AST 39 H
ALT 18
Alkaline Phosphatase 88
Vital Signs:
Vital Signs
Temp Pulse Resp BP Pulse Ox
98.0 F 77 16 131/70 98
10/07/23 07:00 10/07/23 07:00 10/07/23 07:00 10/07/23 07:00 10/07/23 07:00
I&O
10/06/23 10/07/23 10/08/23
06:59 06:59 06:59
Intake Total 1680 / 1680
Balance 1680 / 1680
Review of Systems
-
History Source: Patient
Constitutional: Reports Chills
EENT: Reports No Symptoms Reported
Respiratory: Reports No Symptoms
Cardiac: Reports No Symptoms
Abdomen/GI: Reports Abdominal Pain
Breast: Reports No Symptoms
Genitourinary: Reports No Symptoms
Musculoskeletal: Reports No Symptoms
Skin: Reports No Symptoms
Neuro: Reports No Symptoms
Endocrine: Reports No Symptoms
Hematologic / Lymphatic: Reports No Symptoms
Allergy / Immunology: Reports No Symptoms
Physical Exam
-
General: Well Developed and Well Nourished
HEENT: Normocephalic, Atraumatic and Moist Mucous Membranes
Respiratory: Clear to Auscultation
Cardiac: Regular Rhythm
Breast: Deferred by me
GI: Normal Bowel Sounds and Tender
Rectal: Deferred by Provider
Genito-urinary: Deferred by me
Musculoskeletal: No Clubbing, No Cyanosis and No Edema
Skin: Warm and Dry
Neuro: Awake and Nonfocal/Grossly Intact
Psych: Calm

Documented by User: Luis Antonio Billings MD 10/07/23 14:33
Today's Communication/Plan
-
Replete K and Mg
DC
Assessment / Plan
Assessment / Plan
- Abdominal Pain/Nausea/V/D:
Self limiting illness . Resolved symptoms mostly and tolerating diet .Possibly viral process
Dietary consult concluded that the patient met criteria for chronic severe protein calorie malnutrition. They advised that the patient do the best to consume greater than 50% of each meal offered. They also recommended that the diet remain as a
regular diet to maximize oral intake.
Stool culture pending from 10/05 for Salmonella/Shigella, Campylobacter, and Shiga toxin.
Abdominal CT conducted on 10/04 showed air-fluid levels in nondilated small and large bowel loops, findings that may be seen in association with ileus or enteritis. There was no bowel obstruction. No signs of abscess formation no focal
inflammatory reaction of the bowel was identified.
- Hypovolemic Hyponatremia: Improving with Repletion. Possible multifactorial mech - low solute state and fluid losses.
Acute on chroinc hyponatremia
Suspect component of acute / hypovolemic hyponatremia due to GI losses.
Following for improvement with IVF replacement with lactated ringer's
Current sodium is 131
UA ordered - urine osmolality was low at 109 and urine sodium was low at 14 on 10/06. Suggests prerenal process which correlates with her GI symptoms.
Possibly due to alcohol use disorder / poor solute intake.
- Hypokalemia: Monitoring + tx
Potassium was 3.2 on 10/05 and is currently 3.1 on 10/06.
Added potassium chloride p.o.
- Hypomagnesemia: Monitoring + tx
Magnesium was 1.4 on 10/05. Remains at 1.4 on 10/06.
Continue to replete since current labs continue to show hypomagnesemia. IV magnesium ordered .
- Alcohol Use Disorder: Stable
Typically has 4-5+ drinks daily.
Last drink was 2 days ago which is within the window for withdrawal symptoms.
Supportive care including thiamine/folate replacement.
Monitoring for symptoms of withdrawal and will treat with benzodiazepines as needed.
Reduction of alcohol intake / sobriety.
Counselled about cessation of alcohol
- Benign Hypertension: Stable
Home medications restarted.
Metoprolol given.
- Anxiety/depression: Stable
Continue trazodone nightly
Resume normal sertraline dose if hyponatremia is resolved
- Body mass index of 19.9 or less: Monitoring + consult
Dietary consult ordered
Serum albumin and prealbumin to assess nutritional status
Consider nutritional support, possibly including oral nutritional supplement.
- Anemia -supsect drop sec to dilution .repeat stable .
DVT prophylaxis: Sequential compression devices
Medically stable for DC
Follow BMP starting of next week.
[2023-10-07] MEDS: KCL 20 MEQ PO (10:59)
[2023-10-07 11:15] LABS: Magnesium 1.4 mg/dl (1.6-2.3)
[2023-10-07 11:25] VITALS: BP 114/65
[2023-10-07] MEDS: MAG-TAB SR 84 MG PO (12:49)
[2023-10-07 14:01] LABS: Hemoglobin 10.5 g/dL (12.0-16.0); Mean Corp Hgb Conc. 36.2 g/dL (33.0-37.0); Mean Corpuscular Hgb 33.8 pg (27.0-31.0); Mean Corpuscular Volume 93.2 fL (81.0-99.0); Mean Platelet Volume 9.6 fL (7.4-10.4); Platelet Count 228 10^3/uL (130-400); Red Blood Cell Count 3.11 10^6/uL (4.20-5.40); Red Cell Dist. Width 13.5 % (11.5-14.5); White Blood Cell Count 7.1 10^3/uL (4.8-10.8)
--- NOTE | 2023-10-07 14:38 | W.DS.TRANS ---
DC Summary - [employer]
-
Discharge Instructions:
Discharge Diagnosis/Procedures Acute self-limiting nausea vomiting diarrhea
with abdominal pain ? viral process
Diet Restrict fluids to 64 oz
Activity As tolerated
Driving Restrictions As prior to admission
Bathing Restrictions None
Blood Work BMP and Magnesium mid week . Follow with PCP for
it.
Instructions:
Stand-Alone Forms:
Changes to Home Medications: Yes
Discharge Medications:
DC Medications w/original date entered in [employer]
fluticasone propionate 50 mcg/actuation nasal spray,suspension 1 spray intranasal DAILYPRN PRN congestion 03/08/19
omeprazole 20 mg tablet,delayed release 20 mg PO DAILY Gastrointestinal issue 03/08/19
folic acid 1 mg tablet 1 mg PO DAILY Supplement 10/06/23
lisinopril 5 mg tablet 5 mg PO DAILY Blood Pressure 10/06/23
metoprolol succinate 25 mg tablet,extended release 24 hr 25 mg PO DAILY Blood Pressure 10/06/23
nicotine 14 mg/24 hr daily transdermal patch 14 mg transdermal DAILY smoking cessation 10/06/23
thiamine HCl (vitamin B1) 100 mg tablet 100 mg PO DAILY Supplement 10/06/23
magnesium oxide 400 mg PO DAILY #30 caps 10/07/23
Home Medication Changes
New medication - magnesium oxide
Pending Results: No
[2023-10-07] MEDS: MAGNESIUM SULFATE 50 IV (14:52)
[2023-10-07 15:20] VITALS: BP 136/65
--- NOTE | 2023-10-07 15:38 | W.DCSUMMARY ---
Discharge Summary
Discharge Data
Date of Admission: 10/06/23
Date of Discharge: 10/07/23
-
Pending Results: No
Hospital Course
Patient is a 67-year-old female with a past medical history significant for hypertension, anxiety/depression and alcohol use disorder who presented to the emergency department complaining of abdominal pain with nausea vomiting and diarrhea for the
last 3 days. Patient stated that she had nausea and vomiting and loose stools for the last 3 days. There were no known sick contacts. No new/suspicious food intake. Patient noted subjective fevers/chills/sweats in addition to her GI complaints.
Patient stated that her diarrhea seemed to be gradually improving; however she continued to have nausea and heaves and was having difficulty tolerating oral intake. Patient admitted to regular alcohol use amounting to approximately 4 to 5 glasses
of wine daily. Her last alcohol was about 2 days ago due to her current symptoms. She was admitted to [facility] for abdominal pain with nausea, vomiting, and diarrhea.
Supportive care including BMs, antiemetics were given to the patient during her hospital stay. After IV resuscitation was administered she began to make improvement. Abdominal CT showed air-fluid levels in nondilated small and large bowel loops.
There was no bowel obstruction, no signs of abscess formation, and no focal inflammatory reaction of the bowel identified. There was hepatic fatty infiltration seen on CT. Advanced aortoiliac atherosclerotic changes were seen. And chronic
compression deformities of the thoracic and lumbar spine were also noted on CT. Chest x-ray showed no change compared to prior chest x-ray dated on 07/17/2018. Patient also had hypokalemia and hypomagnesemia which were repleted during her hospital
stay. Patient was advanced to a regular diet which she well-tolerated. Patient believes that she is appropriate for discharge and ready to go home.
The patient has reached maximal benefit from this hospital stay and is appropriate for discharge at the present time. There are no barriers preventing the patient from being discharged. The patient has been advised to continue to take magnesium
supplementation after discharge. Magnesium supplements have been provided to her. Patient has been advised to reduce/discontinue her alcohol consumption. Patient plans to go home upon discharge. Patient should follow-up with her primary care
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
Discharge Plan
-
Patient Disposition: Home (Routine Discharge)
Discharge Diagnosis/Procedures: Acute self-limiting nausea vomiting diarrhea with abdominal pain - secondary to possible viral process. Hypovolemic hyponatremia, hypokalemia, hypomagnesemia, benign hypertension, anxiety/depression
Condition: Fair
Diet: Restrict fluids to 64 oz
Activity: As tolerated
Driving Restrictions: As prior to admission
Bathing Restrictions: None
Blood Work: BMP and Magnesium mid week . Follow with PCP for it.
Referrals:
NONE,* [Family Provider] - in less than 1 week
Prescriptions:
New
magnesium oxide 400 mg magnesium capsule
400 mg PO DAILY Qty: 30 0RF
Continued
fluticasone propionate 1 SPRAY spray,suspension
1 spray intranasal DAILYPRN PRN (Reason: congestion)
omeprazole 20 MG tablet,delayed release (DR/EC)
20 mg PO DAILY
nicotine 14 MG patch 24 hour
14 mg transdermal DAILY
thiamine HCl (vitamin B1) 100 MG tablet
100 mg PO DAILY
folic acid 1 MG tablet
1 mg PO DAILY
lisinopril 5 MG tablet
5 mg PO DAILY
metoprolol succinate 25 MG tablet extended release 24 hr
25 mg PO DAILY
Discharge Orders:
Discharge Patient (As Directed); Ordered 10/07/23
Ordered By: Luis Antonio Billings
Discharge Date and Time
Print Language: CHINESE
--- NOTE | 2023-10-07 16:03 | CM ---
Pt for discharge today with no needs.
== END 2023-10-07 18:21 | disposition home or self-care (01) | DRG 392 ==
LOC: 2 NORTH 01:49
PROVIDERS: Clinical Nurse Specialist Family Health; Emergency Medicine; ADMITTING PHYSICIAN Hospitalist; ATTENDING PHYSICIAN Internal Medicine; EMERGENCY PHYSICIAN Emergency Medicine
DX: R11.2 Nausea with vomiting, unspecified (principal); E87.1 Hypo-osmolality and hyponatremia; Z68.1 Body mass index [BMI] 19.9 or less, adult; F17.200 Nicotine dependence, unspecified, uncomplicated; K52.9 Noninfective gastroenteritis and colitis, unspecified; F10.10 Alcohol abuse, uncomplicated; I10 Essential (primary) hypertension; F41.9 Anxiety disorder, unspecified; F32.A Depression, unspecified; E87.6 Hypokalemia; E83.42 Hypomagnesemia
CPT/HCPCS: 74177; 80048; 80053; 80076; 80306; 81003; 82077; 83690; 83735; 83935; 84100; 84134; 84300; 84484; 85025; 85027; 86803; 87045; 87046; 87427; 93005; 96374; 99285; 99406; Q9967